=== PATIENT | female | born 1995 | race African-American/Black ===

== ENCOUNTER 2017-02-16 11:54 | Emergency (ER) | payer BC, OTHER ==
[2017-02-16 11:59] VITALS: BMI 28.9
--- NOTE | 2017-02-16 12:34 | PDOC ---
History of Present Illness - General Chief Complaint: Pain Stated Complaint: r/o pyelonephritis FEVER, RT SIDE PAIN Time Seen by Provider: 02/16/17 12:18 History Source: Patient Exam Limitations: No Limitations - History of Present Illness Initial Comments: 02/16/17 12:29 21 y.o F with pmh of recurrent UTI's presenting with left sided back pain. 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 She has been having this pain for the last week, intermittently, 7/10, sharp pain. Patient states the pain is pleuritic. She endorses fever, chills, mild dysuria. Denies N/V/D/C, hematuria, abdominal pain, chest pain, SOB, Vaginal bleeding, vaginal discharge. Patient is currently sexually active and does not use protection. No hx of STI' s. Last menstrual period: 02/06/17 PSH: denies ALL: PCN SH: +occasional marijuana PCP: Unsure, not through [facility]. Past History - Past Medical History Allergies/Adverse Reactions: Allergies Allergy/AdvReac Type Severity Reaction Status Date / Time Penicillins Allergy Rash Verified 02/16/17 11:56 shellfish derived Allergy Rash Verified 02/16/17 11:56 Home Medications: Ambulatory Orders No Home Medications 0 dose .ROUTE UTDICT 07/05/12 Metronidazole 500 mg PO BID #14 tablet 02/16/17 Sulfamethoxazole/Trimethoprim [Bactrim Ds Tablet] 1 each PO BID #28 tablet 02/16 Other medical history: none - Immunization History Immunization Up to Date: Yes - Suicide/Smoking/Psychosocial Hx Smoking Status: No Smoking History: Never smoked Number of Cigarettes Smoked Daily: 0 Information on smoking cessation initiated: No Hx Alcohol Use: No Drug/Substance Use Hx: No Substance Use Type: Marijuana Review of Systems - Review of Systems Able to Perform ROS?: Yes Comments:: 02/16/17 12:32 GENERAL/CONSTITUTIONAL: +Fever +chills. No weakness. HEAD, EYES, EARS, NOSE AND THROAT: No change in vision. No ear pain or discharge. No sore throat. CARDIOVASCULAR: No chest pain or shortness of breath RESPIRATORY: No cough, wheezing, or hemoptysis. GASTROINTESTINAL: No nausea, vomiting, diarrhea or constipation. +abdominal and flank pain GENITOURINARY: +dysuria, No frequency, or change in urination. MUSCULOSKELETAL: No joint or muscle swelling or pain. No neck pain. + back pain. SKIN: No rash NEUROLOGIC: No headache, vertigo, loss of consciousness, or change in strength/ sensation. ENDOCRINE: No increased thirst. No abnormal weight change HEMATOLOGIC/LYMPHATIC: No anemia, easy bleeding, or history of blood clots. ALLERGIC/IMMUNOLOGIC: No hives or skin allergy. *Physical Exam - Vital Signs Last Vital Signs Temp Pulse Resp BP Pulse Ox 100.0 F H 109 H 18 148/75 100 02/16/17 11:57 02/16/17 11:57 02/16/17 11:57 02/16/17 11:57 02/16/17 11:57 - Physical Exam Comments: 02/16/17 12:32 GENERAL: Awake, alert, and fully oriented, in no acute distress HEAD: No signs of trauma, normocephalic, atraumatic EYES: PERRLA, EOMI, sclera anicteric, conjunctiva clear ENT: Auricles normal inspection, hearing grossly normal, nares patent, oropharynx clear without exudates. Moist mucosa NECK: Normal ROM, supple, no lymphadenopathy, JVD, or masses LUNGS: No distress, speaks full sentences, clear to auscultation bilaterally HEART: Tachycardic, Regular rhythm, normal S1 and S2, no murmurs, rubs or gallops, peripheral pulses normal and equal bilaterally. ABDOMEN: Soft, Nontender, normoactive bowel sounds. No guarding, no rebound. No masses EXTREMITIES: Normal inspection, Normal range of motion, no edema. No clubbing or cyanosis. NEUROLOGICAL: Cranial nerves II through XII grossly intact. Normal speech, normal gait, no focal sensorimotor deficits SKIN: Warm, Dry, normal turgor, no rashes or lesions noted. ED Treatment Course - LABORATORY CBC & Chemistry Diagram: 02/16/17 13:11 02/16/17 13:11 Medical Decision Making - Medical Decision Making 02/16/17 12:32 21 year old F with pmh of recurrent UTI's presenting with flank pain and abdominal pain. Plan: CBC, CMP, UA, Ucx, Upreg, Gonarrhea/chlamydia, pain control 02/16/17 15:25 UA- 375 wbc. Upreg negative Bimanual exam negative. Patient has whitish discharge. Will tx for Bacterial vaginosis and uncomplicated pyelonephritis. Patient stable for d/c *DC/Admit/Observation/Transfer Diagnosis at time of Disposition: Flank pain - Discharge Dispostion Disposition: HOME Condition at time of disposition: Stable - Prescriptions Prescriptions: Sulfamethoxazole/Trimethoprim [Bactrim Ds Tablet] 1 each PO BID #28 tablet Metronidazole 500 mg PO BID #14 tablet - Patient Instructions Printed Discharge Instructions: DI for Urinary Tract Infection (UTI) Additional Instructions: Follow up with primary care provider and bottom filler doctor within a few days. Take Bactrim ds 1 tablet two times per day for 14 days. Take Metronidazole 500 mg two times per day for 7 days. If you have chest pain, shortness of breath, or any new/worsening symptoms please come back to the hospital immediately.
[2017-02-16] MEDS ORDERED: ACETAMINOPHEN 325 MG TABLET (FP) PO ONE (12:49)
--- NOTE | 2017-02-16 12:50 | PDOC ---
Attending Attestation - Resident Resident Name: QuocshaanJeanette velezl - ED Attending Attestation I have performed the following: I have examined & evaluated the patient, The case was reviewed & discussed with the resident, I agree w/resident's findings & plan, Exceptions are as noted - HPI HPI: 02/16/17 12:44 21yo F hx recurrent UTI p/w L flank pain for 1 week. She was seen by her OB last week and diagnosed with BV and given metrogel which hasn't helped. Pain is 7/10, radiates down her L leg. Reports subjective fevers and chills today as well as mild dysuria which prompted her to come in. States this feels like her previous UTIs. Pt is sexually active, had unprotected sex yesterday, denies vaginal DC. LMP 02/06. Denies other symptoms of CP, SOB, weakness/numbness, rashes, headache. - Physicial Exam PE: 02/16/17 12:50 GENERAL: Awake, alert, and fully oriented, in no acute distress HEAD: No signs of trauma EYES: PERRLA, EOMI, sclera anicteric, conjunctiva clear ENT: Auricles normal inspection, hearing grossly normal, nares patent, oropharynx clear without exudates. Moist mucosa NECK: Normal ROM, supple, no lymphadenopathy, JVD, or masses LUNGS: Breath sounds equal, clear to auscultation bilaterally. No wheezes, and no crackles HEART: tachy to 100 but regular, normal S1 and S2, no murmurs, rubs or gallops ABDOMEN: Soft, no abdominal ttp, normoactive bowel sounds. No guarding, no rebound. No masses. mild L CVAT TEENAGE PROGRAM DIRECTOR: normal external exam, no adnexal or midline ttp, no CMT. Small amount of white discharge in the vaginal vault EXTREMITIES: Normal range of motion, no edema. No clubbing or cyanosis. No cords, erythema, or tenderness NEUROLOGICAL: Normal speech, cranial nerves intact, negative pronator drift, 5/ 5 strength in all 4 extremities, normal sensation to light touch in all 4 extremities, normal cerebellar exam, normal gait, normal reflexes and tone SKIN: Warm, Dry, normal turgor, no rashes or lesions noted. - Medical Decision Making 02/16/17 12:51 21-year-old female with a history of recurrent UTIs presents with left flank pain. Vitals here remarkable for low-grade temp to 100 and tachycardia to 109. Exam with mild L CVAT. Differential includes but is not limited to UTI versus pyelonephritis versus ovarian cyst versus ectopic -labs -upt -UA -consider TVUS -pain control -reassess 02/16/17 15:31 UA+ for infection, in concert with CVAT, low grade fever on arrival and mild tachycardia likely pyelonephritis. UPT negative. Pelvic exam negative Will treat with bactrim. Also given failure of metrogel for BV, will order PO metronidozole. Although pt is underage, I warned her about consuming etoh while taking metronidazole. I discussed the physical exam findings, ancillary test results and final diagnoses with the patient. I answered all of the patient's questions. The patient was satisfied with the care received and felt comfortable with the discharge plan and treatment plan. The patient will call their primary care physician within 24 hours to arrange follow-up and will return to the Emergency Department with any new, persistent or worsening symptoms.
[2017-02-16 13:38] LABS: BASOPHIL 0.7 % (0-2.0); EOSINOPHIL 0.7 % (0-4.5); MCH 29.1 pg (25.7-33.7); MCHC 33.6 g/dl (32.0-36.0); MEAN CELL VOLUME 86.4 fl (80-96); MEAN PLT VOLUME 7.4 fl (7.5-11.1); NEUTROPHILS 55.2 % (42.8-82.8); PLATELET COUNT 277 K/MM3 (134-434); RDW 13.6 % (11.6-15.6); WHITE BLOOD COUNT 8.1 K/mm3 (4.0-10.0)
[2017-02-16] MEDS ORDERED: ACETAMINOPHEN 325 MG TABLET (FP) ONE (13:40)
[2017-02-16 13:41] LABS: URINE APPEARANCE CLOUDY; URINE BILIRUBIN NEGATIVE (NEGATIVE); URINE BLOOD 1+ (NEGATIVE); URINE COLOR YELLOW; URINE GLUCOSE (UA) NEGATIVE (NEGATIVE); URINE KETONE NEGATIVE (NEGATIVE); URINE NITRITE NEGATIVE (NEGATIVE); URINE UROBILINOGEN NEGATIVE mg/dL (0.2-1.0)
[2017-02-16 13:48] LABS: URINE PROTEIN 1+ (NEGATIVE)
[2017-02-16 14:13] LABS: ALBUMIN 3.3 g/dl (3.4-5.0); ALK PHOS 78 U/L (45-117); ANION GAP 11 (8-16); BILIRUBIN,TOTAL 0.5 mg/dL (0.2-1.0); CALCIUM 8.3 mg/dL (8.5-10.1); CO2 25 mmol/L (21-32); CREATININE 0.8 mg/dL (0.55-1.02); GLUCOSE,RANDOM 75 mg/dL (74-106); SGOT/AST 22 U/L (15-37); SGPT/ALT 28 U/L (12-78); TOT PROT 7.3 g/dl (6.4-8.2)
[2017-02-16 14:45] LABS: URINE BACTERIA FEW /hpf (NONE SEEN); URINE MUCUS RARE; URINE RBC 3 /hpf (0-3); URINE WBC 375 /hpf (3-5)
[2017-02-16 15:44] VITALS: BP 122/73; PULSE 93; TEMP 98.5
[2017-02-16 17:10] LABS: URINE LEUK ESTERASE 3+ (NEGATIVE)
== END 2017-02-16 15:48 | disposition home or self-care (01) ==
LOC: JER 11:54
DX: N39.0 Urinary tract infection, site not specified (principal); B96.20 Unspecified Escherichia coli [E. coli] as the cause of diseases classified elsewhere
CPT/HCPCS: 36415; 80053; 81003; 81015; 83690; 84703; 85025; 87086; 87186; 87491; 87591; 99283-25

== ENCOUNTER 2017-10-17 21:34 | Emergency (ER) | payer OTHER ==
[2017-10-17] MEDS ORDERED: DIPHTH,PERTUSS(ACELL),TET 0.5 ML DISP.SYRIN IM ONE (21:37)
--- NOTE | 2017-10-17 21:38 | PDOC ---
Rapid Medical Evaluation Medical Evaluation: Allergies Allergy/AdvReac Type Severity Reaction Status Date / Time Penicillins Allergy Rash Verified 02/16/17 11:56 shellfish derived Allergy Rash Verified 02/16/17 11:56 10/17/17 21:35 I have performed a brief in-person evaluation of this patient. The patient presents with a chief complaint of: left hand pain Pertinent physical exam findings: lac to arreola left thumb IP joint I have ordered the following: upreg, xray, Td The patient will proceed to the ED for further evaluation. Discharge Disposition - Diagnosis Left hand pain - Referrals - Patient Instructions - Post Discharge Activity
[2017-10-17 21:39] VITALS: BP 150/77; PULSE 94; TEMP 98.9; BMI 29.8
[2017-10-17] MEDS ORDERED: LIDOCAINE HCL 1%, 10 MG/ML (20ML VIAL) ONE (22:29)
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
== END 2017-10-17 23:08 | disposition home or self-care (01) ==
LOC: JERFT 21:34
PROC: 2W3KX1Z Immobilization of Left Finger using Splint (ICD-10-PCS; principal; 2017-10-17)
DX: M79.642 Pain in left hand (principal); S67.191A Crushing injury of left index finger, initial encounter; S67.02XA Crushing injury of left thumb, initial encounter; V04.90XA Pedestrian on foot injured in collision with heavy transport vehicle or bus, unspecified whether traffic or nontraffic accident, initial encounter; Y93.89 Activity, other specified; Y92.410 Unspecified street and highway as the place of occurrence of the external cause; S62.611A Displaced fracture of proximal phalanx of left index finger, initial encounter for closed fracture
CPT/HCPCS: 73130-TC-LR-FY; 84703; 90715; 99281-25

== ENCOUNTER 2017-10-23 07:39 | Day surgery (SDC) | payer OTHER ==
[2017-10-22 14:16] VITALS: BMI 29.6
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
[2017-10-23] MEDS ORDERED: ceFAZolin 2 GRAM PREMIX BAG IVPB ONE (07:55)
--- NOTE | 2017-10-23 08:17 | DS ---
Physical Examination Constitutional: Yes: Well Nourished, No Distress, Calm Eyes: Yes: Conjunctiva Clear, EOM Intact HENT: Yes: Atraumatic, Normocephalic Neck: Yes: Supple, Trachea Midline Cardiovascular: Yes: Regular Rate and Rhythm, S1, S2 Respiratory: Yes: Regular, CTA Bilaterally Gastrointestinal: Yes: Normal Bowel Sounds, Soft. No: Tenderness Renal/: No: CVA Tenderness - Left, CVA Tenderness - Right Musculoskeletal: No: Muscle Pain, Muscle Weakness Extremities: No: Cool, Cyanosis Edema: No Peripheral Pulses WNL: Yes Peripheral Pulses: Left Doralis Pedis: 2+, Right Dorsalis Pedis: 2+ Wound/Incision: Yes: Clean/Dry, Well Approximated, Dressing Dry and Intact ( Left hand splint) Discharge Summary Reason For Visit: DISP FX OF PROX PHALANX LT THUMB, INIT FOR CLOS FX Current Active Problems Fracture of proximal phalanx of left hand (Acute) Open fracture of proximal phalanx of left hand (Acute) Procedures: Principal: ORIF of left index finger proximal phalanx Hospital Course: Admitted for ambulatory procedure. Uneventful ORIF of left index finger proximal phalanx. Stable for discharge home Condition: Good - Instructions Diet, Activity, Other Instructions: Postoperative instructions: You had a ORIF of left index finger on 10/[address] Jamin Maldonado of [facility]. Activity: Resume your usual activities gradually, but no heavy exertion or lifting more than 10-15 pounds for 4-6 weeks. Please keep left hand spint clean and dry for 2 weeks until follow up. Eat lightly at first, but advance to your usual diet as tolerated. Pain: For pain, you may use and alternate Tylenol (acetaminophen) and/or ibuprofen every 6 hours each as needed; this means that you can take one OR the other at 3-hour intervals. If you are prescribed a Tylenol/narcotic combination for severe pain, use it instead of plain Tylenol as needed and switch back when your pain starts decreasing. Do not take more than 4000mg of acetaminophen in a day. Take medications as prescribed or indicated on the labeling. Follow-up: Call Dr. Maldonado' office at [phone] to make your postop appointment (Sunday 2 weeks after surgery as advised). Clinic is held in the [facility] on the first floor of [facility]. Call the office if you have: * increasing pain not responsive to pain medication * fever of 101F or higher * vomiting * unusual or increasing bleeding or drainage from wounds * increasing redness or swelling at wound sites * inability to urinate Also, see your primary medical doctor within 1-2 weeks. Disposition: HOME - Home Medications Comprehensive Discharge Medication List: Ambulatory Orders Ciprofloxacin [Cipro (Restricted To Id)] 500 mg PO Q12H 10/22/17 Oxycodone HCl/Acetaminophen [Percocet 5/325 -] 1 tab PO Q4H #40 tab MDD 5
[2017-10-23] MEDS ORDERED: PROPOFOL 20 ML ONE ×3 (08:48→09:27)
[2017-10-23] MEDS ORDERED: MIDAZOLAM HCL 2 MG/2 ML SINGLE DOSE VIAL ONE (08:48)
[2017-10-23] MEDS ORDERED: CLINDAMYCIN PHOSPHATE 600 MG/4 ML VIAL ONE (09:07)
[2017-10-23] MEDS ORDERED: CLINDAMYCIN PHOSPHATE 600 MG/4 ML VIAL IVPB ONE (09:10)
[2017-10-23] MEDS ORDERED: LIDOCAINE HCL 1%, 10 MG/ML (20ML VIAL) NR ONE (09:12)
[2017-10-23] MEDS ORDERED: oxyCODONE HCL 5 MG TABLET PO PRN (10:04)
[2017-10-23] MEDS ORDERED: ONDANSETRON 4 MG/2 ML VIAL IVPUSH PRN (10:04)
[2017-10-23] MEDS ORDERED: ACETAMINOPHEN 325 MG TABLET (FP) PO PRN (10:04)
--- NOTE | 2017-10-23 10:08 | OP ---
Operative Note - Note: Operative Date: 10/23/17 Pre-Operative Diagnosis: left index finger proximal phalanx fracture Operation: open reduction and internal fixation proximal phalanx of left indsx finger with plate and screws Findings: non-disoplaced transversed fracture proximal third proximal phalanx Implants: Activaeroiax hand plating system 3 hole t plate. 1.7x8, 1.7x10, 1.7X12, 1.7x14 Post-Operative Diagnosis: Same as Pre-op Surgeon: Jamin Maldonado Anesthesiologist/SURVEYOR HELPER ROD: Rafael Yoon Anesthesia: Local (1% lidocaine 20ml), MAC Estimated Blood Loss (mls): 1 Fluid Volume Replaced (mls): 800 Operative Report Dictated: Yes
[2017-10-23] MEDS ORDERED: LACTATED RINGERS SOLUTION 1,000 ML IV SCH (10:15)
[2017-10-23 12:42] VITALS: TEMP 98
[2017-10-23 15:26] VITALS: BP 143/72; PULSE 83
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
== END 2017-10-23 12:40 | disposition home or self-care (01) ==
LOC: JASU-SURG 07:39
PROC: 0PSV04Z Reposition Left Finger Phalanx with Internal Fixation Device, Open Approach (ICD-10-PCS; principal; 2017-10-23 09:00)
DX: S62.611A Displaced fracture of proximal phalanx of left index finger, initial encounter for closed fracture (principal); X58.XXXA Exposure to other specified factors, initial encounter; Y93.9 Activity, unspecified; Y92.9 Unspecified place or not applicable; Y99.9 Unspecified external cause status
CPT/HCPCS: 26735; C1713; 36415; 84703; 86850; 86900; 86901; 94760

== ENCOUNTER 2018-07-04 16:36 | Emergency (ER) | payer OTHER ==
[2018-07-04 16:46] VITALS: TEMP 98.2; BMI 36.6
[2018-07-04] MEDS ORDERED: diphenhydrAMINE HCL 25 MG CAPSULE (FP) PO ONE ×2 (17:10→17:33)
[2018-07-04] MEDS ORDERED: predniSONE 20 MG TABLET (UD) PO ONE (17:10)
--- NOTE | 2018-07-04 17:11 | PDOC ---
History of Present Illness - History of Present Illness Initial Comments: 22 Y F presenting s/p allergic reaction 2 hours prior to arrival. Patient notes she was eating leftover food, when she unknowingly consumed shrimp (pt has shellfish allergy) at 245PM today in the rice dish her mother cooked. She reports diarrhea, hives along her neck, throat discomfort, and left eye puffiness 10-15 minutes following the shrimp consumption. 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 While the staff at [facility] was trying to place the IV in her arm, patient began to hyperventilate and felt her throat close up. She reports nausea (without vomit) secondary to the IV steroid and IV placement. Patient was given an EPIpen in the past for prior allergic reaction to shellfish, but never used it and notes it is . Denies fever, chills, chest pain, SOB, palpitation, dizziness, weakness, N, V, D , abdominal pain, bladder and bowel problems, leg swelling, No sick contacts or travel. No new changes in medications. Allergies: Shellfish, bee venom, mussels, lemon eucalyptus, and penicillins Past Medical History: no PMH Social history: Lives with family. No smoking. No alcohol. Marijuana user. Surgical history: Right pointer finger lianne placement (crush injury) 07/04/18 18:07 <Tennille Mello - Last Filed: 07/04/18 18:07> - General History Source: Patient Exam Limitations: No Limitations <Sara Ramirez - Last Filed: 07/04/18 18:50> - General Chief Complaint: Allergic Reaction Stated Complaint: ALLERGIC REACTION Time Seen by Provider: 07/04/18 16:54 Past History <Tennille Mello - Last Filed: 07/04/18 18:07> - Past Medical History Anemia: No Asthma: No Cancer: No Cardiac Disorders: No CVA: No COPD: No CHF: No Dementia: No Diabetes: No GI Disorders: No Disorders: Yes (uti) HTN: No Hypercholesterolemia: No Liver Disease: No Seizures: No Thyroid Disease: No - Immunization History Immunization Up to Date: Yes - Suicide/Smoking/Psychosocial Hx Smoking Status: No Smoking History: Unknown if ever smoked Have you smoked in the past 12 months: No Number of Cigarettes Smoked Daily: 0 Hx Alcohol Use: No Drug/Substance Use Hx: Yes Substance Use Type: Marijuana Hx Substance Use Treatment: No <Sabino Ramirezdorian Salinas - Last Filed: 07/04/18 18:50> - Past Medical History Allergies/Adverse Reactions: Allergies Allergy/AdvReac Type Severity Reaction Status Date / Time bee venom protein (honey bee) Allergy Severe Difficulty Verified 10/22/17 14:20 Breathing mussels Allergy Severe Rash Verified 10/22/17 14:20 lemon eucalyptus Allergy Mild Hives Verified 10/22/17 14:20 [From Mosquito Eliminator] Penicillins Allergy Mild Rash Verified 10/22/17 14:21 shellfish derived Allergy Mild Rash Verified 10/22/17 14:21 Home Medications: Ambulatory Orders Diphenhydramine [Benadryl -] 50 mg PO TID #15 capsule 07/04/18 EPINEPHrine (EPI-PEN 0.3MG) [Epipen 0.3MG -] 0.3 mg IM ASDIR PRN #2 pens Famotidine [Pepcid -] 20 mg PO BID #10 tablet 07/04/18 Prednisone [Prednisone 50 MG TABLETS] 50 mg PO DAILY 3 Days #3 tablet 07/04/18 Review of Systems - Review of Systems Comments:: Constitutional: no fevers or chills. HEENT: no headache or dizziness. No congestion. No visual/hearing disturbances. +eye puffiness. CVS: no cp or syncope. Resp: no sob. No cough. Gastrointestinal: +Diarrhea +Nausea no abdominal pain or vomiting. Genitourinary: no urinary sx, hematuria. MUSCULOSKELETAL: No joint pain and swelling. No neck or back pain. SKIN: no redness or skin changes, no discharge, no rash. No wounds. Hematologic: no easy bruising/bleeding. NEUROLOGIC: No headache, dizziness, LOC or altered mental status. No weakness, numbness or tingling. Allergic/Immunologic: +Urticaria/rash, pruritis. All other systems reviewed and negative, or as documented in HPI. 07/04/18 18:07 <Tennille Mello - Last Filed: 07/04/18 18:07> *Physical Exam - Vital Signs Last Vital Signs Temp Pulse Resp BP Pulse Ox 98.2 F 79 18 122/63 98 07/04/18 16:44 07/04/18 16:44 07/04/18 16:44 07/04/18 16:44 07/04/18 16:44 - Physical Exam Comments: General: Well appearing, awake and alert, NAD. HEENT exam: NCAT, PERRL, EOMI, clear conjunctiva, anicteric, moist mucus membranes, clear oropharynx. Airway patent, normal phonation. Uvula midline. No sinus tenderness, TM clear, no pinna tenderness to manipulation. Neck: neck supple, FROM Resp: CTAB, normal and even respirations, no respiratory distress CVS: RRR, no murmurs, 2+ peripheral pulses throughout, no peripheral edema Abdomen: soft, NTND, no peritoneal signs. Back: nontender, normal inspection and ROM MSK: no edema, VASQUEZ x4, ROM intact. No clubbing or cyanosis. normal bulk and tone. Neuro: alert, oriented appropriately; no focal neurologic deficits Skin: warm and well perfused, cap refill <2 sec, normal color. No rash or urticaria. 07/04/18 18:08 <Tennille Mello - Last Filed: 07/04/18 18:07> - Vital Signs Last Vital Signs Temp Pulse Resp BP Pulse Ox 98.2 F 79 18 122/63 98 07/04/18 16:44 07/04/18 16:44 07/04/18 16:44 07/04/18 16:44 07/04/18 16:44 <Sara Ramirez - Last Filed: 07/04/18 18:50> Moderate Sedation - Procedure Monitoring Vital Signs: Procedure Monitoring Vital Signs Temperature 98.2 F 07/04/18 16:44 Pulse Rate 79 07/04/18 16:44 Respiratory Rate 18 07/04/18 16:44 Blood Pressure 122/63 07/04/18 16:44 O2 Sat by Pulse Oximetry (%) 98 07/04/18 16:44 <Tennille Mello - Last Filed: 07/04/18 18:07> - Procedure Monitoring Vital Signs: Procedure Monitoring Vital Signs Temperature 98.2 F 07/04/18 16:44 Pulse Rate 79 07/04/18 16:44 Respiratory Rate 18 07/04/18 16:44 Blood Pressure 122/63 07/04/18 16:44 O2 Sat by Pulse Oximetry (%) 98 07/04/18 16:44 <Sara Ramirez - Last Filed: 07/04/18 18:50> ED Treatment Course - Medications Given in the ED: ED Medications Discontinued Medications Generic Name Dose Route Start Last Admin Trade Name Radha PRN Reason Stop Dose Admin Diphenhydramine HCl 25 mg 07/04/18 17:10 07/04/18 17:41 Benadryl - PO 07/04/18 17:11 25 mg ONCE ONE Administration Famotidine/Sodium Chloride 20 mg in 50 mls @ 100 mls/hr 07/04/18 17:12 17:45 Pepcid 20 Mg Premixed Ivpb - IVPB 07/04/18 17:41 100 mls/hr ONCE ONE Administration Prednisone 60 mg 07/04/18 17:10 07/04/18 17:40 Deltasone - PO 07/04/18 17:11 60 mg ONCE ONE Administration <Tennille Mello - Last Filed: 07/04/18 18:07> Medical Decision Making - Medical Decision Making 07/04/18 17:11 DDx. allergic reaction: hypersensitivity reaction, allergic reaction, anaphylaxis, hives/urticaria. drug rash. dermatitis. serum sickness. vasculitis. medication side effect. -No fevers or systemic findings, clinically well appearing. no mucosal involvement so doubt SJS/TEN. airway patent, doubt anaphylaxis or Dress syndrome. - No evidence of erythema multiforme, SJS/TEN, Lyme, cellulitis, necrotizing fasciitis, no angioedema, meningococcemia, iraj mountain spotted fever. - given steroids, benadryl, pepcid with clinical improvement. VS wnl, stable, no hypotension. - instructions on avoiding triggers, rx prednisone x 3 more days, benadryl Q6-8 hr ATC x 3 days, pepcid for dual antihistamine relief. Does not appear at this time to be erythema multiforme, bullous, SJS, TEN as no rash; patient looks well, nontoxic and is tolerating oral intake; no neurologic signs or symptoms; no headache or photophobia or neck pain; no ev of sepsis; question viral exanthema; afebrile; appropriate for initial o/p tx; d/w pt importance of f/u and pt agrees/understands; told pt to return to nearest ER immediately for any worsening ssx incl but not limited to: fever, spreading rash , pain, sore throat, headache, dizziness, chest pain, trouble breathing, or any ssx concerning to the patient. I did d/w pt the aforementioned ddx as possibilities and pt understands to f/u even if better and to return to ER if un -changed/worse. Pt understands these instructions on d/c and is comfortable with discharge plan. 07/04/18 18:39 <Sara Ramirez - Last Filed: 07/04/18 18:50> *DC/Admit/Observation/Transfer - Attestations Scribe Attestion: Documentation prepared by YUNIOR Gates, acting as medical coding manager for Sara Ramirez MD. 07/04/18 18:00 <Tennille Mello - Last Filed: 07/04/18 18:07> - Discharge Dispostion Decision to Admit order: No - Attestations Physician Attestion: 07/04/18 17:21 I, Sara Ramirez MD, attest that this document has been prepared under my direction and personally reviewed by me in its entirety. I further attest, that it accurately reflects all work, treatment, procedures and medical decision -making performed by me. <Sara Ramirez - Last Filed: 07/04/18 18:50> Diagnosis at time of Disposition: Allergic reaction Qualifiers: Encounter type: initial encounter Qualified Code(s): T78.40XA - Allergy, unspecified, initial encounter - Discharge Dispostion Disposition: HOME Condition at time of disposition: Improved - Prescriptions Prescriptions: Diphenhydramine [Benadryl -] 50 mg PO TID #15 capsule EPINEPHrine (EPI-PEN 0.3MG) [Epipen 0.3MG -] 0.3 mg IM ASDIR PRN #2 pens PRN Reason: anaphylaxis Famotidine [Pepcid -] 20 mg PO BID #10 tablet Prednisone [Prednisone 50 MG TABLETS] 50 mg PO DAILY 3 Days #3 tablet - Referrals Referrals: [facility] [place] [Provider Group] [facility] [Provider Group] Reshma Lamb [Non Staff, Medical] - Ayana Loving [Non Staff, Medical] - - Patient Instructions Printed Discharge Instructions: DI for General Allergic Reactions Additional Instructions: Discharge for patients: Please follow-up with your primary doctor(s) within 2- 3 days, bosom presser referral given. Please avoid any known triggers of your allergies. We recommend you see an [facility] - we have given you a list of allergists (check with your insurance before making any appointments). You were given a copy of the results from any tests performed today in the Emergency Department which have results available. Show these to your doctor(s). Some of the tests we sent may not have results yet so please call or have your doctor call the Emergency Department to follow up on all results. We have sent a prescription for an Epi-Pen to your pharmacy. Please pick it up as soon as possible. Always carry this with you. In the Emergency Department today, we spoke about how to use the Epi-Pen only in the event of a severe allergic reaction with trouble breathing or throat swelling. You must go to the hospital right away if you ever use the Epi-Pen. Remember that they every year so you should have your doctor write a new prescription yearly. We have sent a prescription for prednisone to your pharmacy. Please pick it up as soon as possible and use as directed (1 tablet once daily for 3 more days). Take Benadryl (also called diphenhydramine) 25mg to 50 mg (1-2 capsules) every 6-8 hours as needed for further allergy symptoms (can be purchased without a prescription) - please note that Benadryl often causes drowsiness so please do not drive, make important decisions or operate machinery until you know how it will affect you. Please return to the Emergency Department right away if you have any worsening or new shortness of breath, changes in your voice, tightness/ itching in your mouth/throat, swelling, severe hives, chest pain, high fever. There is a very small chance of a recurrence of the allergic reaction, typically in the next 24 hours. If you see the same symptoms (rash, trouble breathing, vomiting, etc) return, come back to the Emergency Department immediately. - Post Discharge Activity Forms/Work/School Notes: Back to Work
[2018-07-04] MEDS ORDERED: FAMOTIDINE 20 MG/50 ML IVPB 20 MG/50 ML MG IVPB ONE ×2 (17:12→17:33)
[2018-07-04] MEDS ORDERED: predniSONE 20 MG TABLET (UD) ONE (17:32)
[2018-07-04 18:16] VITALS: BP 135/84; PULSE 88
== END 2018-07-04 18:21 | disposition home or self-care (01) ==
LOC: JER 16:36
PROC: 3E033GC Introduction of Other Therapeutic Substance into Peripheral Vein, Percutaneous Approach (ICD-10-PCS; principal; 2018-07-04)
DX: T78.1XXA Other adverse food reactions, not elsewhere classified, initial encounter (principal); L50.0 Allergic urticaria; Z91.013 Allergy to seafood; Z88.0 Allergy status to penicillin
CPT/HCPCS: 99282-25

== ENCOUNTER 2018-10-30 12:19 | Emergency (ER) | payer OTHER ==
[2018-10-30 12:53] VITALS: BP 134/65; PULSE 81; TEMP 98.2; BMI 35.4
--- NOTE | 2018-10-30 13:45 | PDOC ---
History of Present Illness - General Chief Complaint: Sore Throat Stated Complaint: SORE THROAT / COUGH Time Seen by Provider: 10/30/18 13:16 History Source: Patient Exam Limitations: Clinical Condition - History of Present Illness Initial Comments: 10/30/18 13:42 Patient with no significant past medical history present with complaint of 2 weeks history of persistent dry cough, nasal congestion and now with sore throat for 3 days. Reported taking [id number] medication for cough and Tessalon Perles without improvement. Denies fever, chills, shortness of breath, nausea or vomiting. Denies any sick contacts. Denies any other symptoms Timing/Duration: other (2 weeks) Past History - Past Medical History Allergies/Adverse Reactions: Allergies Allergy/AdvReac Type Severity Reaction Status Date / Time bee venom protein (honey bee) Allergy Severe Difficulty Verified 10/30/18 12:50 Breathing mussels Allergy Severe Rash Verified 10/30/18 12:50 lemon eucalyptus Allergy Mild Hives Verified 10/30/18 12:50 [From Mosquito Eliminator] Penicillins Allergy Mild Rash Verified 10/30/18 12:50 shellfish derived Allergy Mild Rash Verified 10/30/18 12:50 Home Medications: Ambulatory Orders Albuterol Sulfate Inhaler - [Ventolin Hfa Inhaler -] 1 - 2 inh PO Q4H PRN #1 inhaler 10/30/18 Methylprednisolone [Medrol Dose Cristhian] 4 mg PO ASDIR #21 tablet 10/30/18 Anemia: No Asthma: No Cancer: No Cardiac Disorders: No CVA: No COPD: No CHF: No Dementia: No Diabetes: No GI Disorders: No Disorders: Yes (uti) HTN: No Hypercholesterolemia: No Liver Disease: No Seizures: No Thyroid Disease: No - Immunization History Immunization Up to Date: Yes - Suicide/Smoking/Psychosocial Hx Smoking Status: No Smoking History: Never smoked Have you smoked in the past 12 months: No Number of Cigarettes Smoked Daily: 0 Information on smoking cessation initiated: No Hx Alcohol Use: No Drug/Substance Use Hx: No Substance Use Type: Marijuana Hx Substance Use Treatment: No Review of Systems - Review of Systems Able to Perform ROS?: Yes Is the patient limited Martiniquais proficient: No Constitutional: No: Chills, Fever, Malaise HEENTM: Yes: Symptoms Reported, See HPI, Throat Pain. No: Eye Pain, Blurred Vision, Tearing, Recent change in vision, Double Vision, Cataracts, Ear Pain, Ocular Prothesis, Ear Discharge, Nose Pain, Nose Congestion, Tinnitus, Nose Bleeding, Hearing Loss, Throat Swelling, Mouth Pain, Dental Problems, Difficulty Swallowing, Mouth Swelling, Other Respiratory: Yes: Symptoms reported, See HPI, Cough. No: Orthopnea, Shortness of Breath, SOB with Exertion, SOB at Rest, Stridor, Wheezing, Productive cough, Hemoptysis, Other Cardiac (ROS): No: Symptoms Reported, See HPI, Chest Pain, Edema, Irregular Heart Rate, Lightheadedness, Palpitations, Syncope, Chest Tightness, Other ABD/GI: No: Nausea, Vomiting All Other Systems: Reviewed and Negative *Physical Exam - Vital Signs Last Vital Signs Temp Pulse Resp BP Pulse Ox 98.2 F 81 17 134/65 100 10/30/18 12:50 10/30/18 12:50 10/30/18 12:50 10/30/18 12:50 10/30/18 12:50 - Physical Exam Comments: 10/30/18 13:44 GENERAL: Well developed, well nourished. Awake and alert. No acute distress. HEENT: Normocephalic, atraumatic. PERRLA, EOMI. No conjunctival pallor. Sclera are non-icteric. Moist mucous membranes. Oropharynx is clear. NECK: Supple. Full ROM. CARDIOVASCULAR: Regular rate and rhythm. No murmurs, rubs, or gallops. Distal pulses are 2+ and symmetric. PULMONARY: No evidence of respiratory distress. Lungs clear to auscultation bilaterally. No wheezing, rales or rhonchi. ABDOMINAL: Soft. Non-tender. Non-distended. No rebound or guarding. No organomegaly. Normoactive bowel sounds. MUSCULOSKELETAL Normal range of motion at all joints. SKIN: Warm and dry. Normal capillary refill. No rashes. No jaundice. NEUROLOGICAL: Alert, awake, appropriate. Gait is normal without ataxia. PSYCHIATRIC: Cooperative. Good eye contact. Appropriate mood General Appearance: Yes: Nourished, Appropriately Dressed. No: Apparent Distress ED Treatment Course - RADIOLOGY Radiology Studies Ordered: Category Date Time Status CHEST PA & LAT [RAD] Stat Radiology 10/30/18 13:39 Ordered Medical Decision Making - Medical Decision Making 10/30/18 13:43 Patient with no significant past medical history present with complaint of 2 weeks history of persistent dry cough, nasal congestion and now with sore throat for 3 days. Reported taking [id number] medication for cough and Tessalon Perles without improvement. Denies fever, chills, shortness of breath, nausea or vomiting. Denies any sick contacts. Denies any other symptoms Exam significant for mild postnasal drip otherwise unremarkable exam. No pharyngeal erythema. Lungs clear to auscultation bilateral. Symptoms likely viral URI versus strep versus less likely pneumonia. Rapid strep ordered to rule out strep pharyngitis. Checks x-ray ordered to rule out pneumonia. Treat based on lab and imaging results 10/30/18 14:42 Rapid strep negative . CXR shows no acute infiltrate. Patient symptoms likely viral URI and stable for discharge on medrol-cristhian for cough, loratadine with PCP f/u prn *DC/Admit/Observation/Transfer Diagnosis at time of Disposition: Cough URI (upper respiratory infection) Qualifiers: URI type: unspecified viral URI Qualified Code(s): J06.9 - Acute upper respiratory infection, unspecified - Discharge Dispostion Disposition: HOME Condition at time of disposition: Stable Decision to Admit order: No - Prescriptions Prescriptions: Albuterol Sulfate Inhaler - [Ventolin Hfa Inhaler -] 1 - 2 inh PO Q4H PRN #1 inhaler PRN Reason: Cough Methylprednisolone [Medrol Dose Cristhian] 4 mg PO ASDIR #21 tablet - Referrals Referrals: Lucila Mahoney [Primary Care Provider] - - Patient Instructions Printed Discharge Instructions: DI for Viral Upper Respiratory Infection -- Adult Additional Instructions: Your strep test was negative. Your checks x-ray was normal. Your symptoms likely viral upper respiratory infection. Take medication as prescribed. Stop cigarette smoking. Increase fluid as needed. Follow-up with primary care as needed - Post Discharge Activity Forms/Work/School Notes: Back to Work
== END 2018-10-30 14:52 | disposition home or self-care (01) ==
LOC: JERFT 12:19
DX: J06.9 Acute upper respiratory infection, unspecified (principal); R05 Cough
CPT/HCPCS: 71046-TC-FY; 84703; 87070; 87880; 99281-25

== ENCOUNTER 2018-11-20 11:38 | Emergency (ER) | payer OTHER ==
[2018-11-20 11:48] VITALS: BP 108/67; PULSE 73; TEMP 98.7; BMI 35.4
--- NOTE | 2018-11-20 12:24 | PDOC ---
History of Present Illness - General Chief Complaint: Cold Symptoms Stated Complaint: RT.RIB PAIN Time Seen by Provider: 11/20/18 11:52 History Source: Patient, Old Records Exam Limitations: No Limitations - History of Present Illness Initial Comments: 11/20/18 12:20 HISTORY OF PRESENT ILLNESS: This is a 23-year-old woman who denies medical history who presents emergency department for reevaluation of cough which is been persistent for 6 weeks. Patient states she was seen in this ER beginning of October had a negative workup and was discharged home with albuterol inhaler and Medrol Dosepak. Patient stated she did not want to take steroids so she skipped the prednisone and reports inhaler did not work. Patient reports the cough has been persistent with occasional posttussive vomiting. Now patient has pleuritic chest pain on the right side starting mid axillary over the eighth rib following the eighth rib under her right breast to the sternum. She denies any chest pain. She denies fevers, chills, recent travel, oral contraception. No recent travel or sick contacts. PAST MEDICAL HISTORY: Denies past medical history SURGICAL HISTORY: Denies ALLERGIES: No known drug allergies REVIEW OF SYSTEMS General/Constitutional: Denies fever or chills. Denies weakness, weight change. HEENT: Denies change in vision. Denies ear pain or discharge. Denies sore throat. Cardiovascular: Denies chest pain or shortness of breath. Respiratory: see HPI Gastrointestinal: Denies nausea, vomiting, diarrhea or constipation. Denies rectal bleeding. Genitourinary: Denies dysuria, frequency, or change in urination. Musculoskeletal: Denies joint or muscle swelling or pain. Denies neck or back pain. Skin and breasts: Denies rash or easy bruising. Neurologic: Denies headache, vertigo, loss of consciousness, or loss of sensation. Psychiatric: Denies depression or anxiety. Endocrine: Denies increased thirst. Denies abnormal weight change. Hematologic/Lymphatic: Denies anemia, easy bleeding, or history of blood clots. Allergic/Immunologic: Denies hives or skin allergy. Denies latex allergy. PHYSICAL EXAM General Appearance: Well-appearing, appropriately dressed. No apparent distress , no intoxication. HEENT: EOMI, PERRLA, normal ENT inspection, normal voice, TMs normal, pharynx normal. No conjunctival pallor. No photophobia, scleral icterus. Neck: Supple. Trachea midline. No tenderness, rigidity, carotid bruit, stridor , lymphadenopathy, or thyromegaly. Respiratory/Chest: Lungs CTAB. No shortness of breath, respiratory distress, accessory muscle use. No crackles, rales, rhonchi, stridor, wheezing, dullness. Chest tenderness present over the eighth rib starting in the mid axillary line extending under the right breast to the sternum. No chest tenderness upon palpation of the left side. Cardiovascular: RRR. S1, S2. No JVD, murmur, bradycardia, tachycardia. Vascular Pulses: Dorsalis-Pedis (R): 2+, Dorsalis-Pedis (L): 2+ Gastrointestinal/Abdominal: Normal bowel sounds. Abdomen soft, non-distended. No tenderness or rebound tenderness. No organomegaly, pulsatile mass, guarding, hernia, hepatomegaly, splenomegaly. Lymphatic: No adenopathy, tenderness. Musculoskeletal/Extremities: Normal inspection. FROM of all extremities, normal capillary refill. Pelvis Stable. No CVA tenderness. No tenderness to extremities, pedal edema, swelling, erythema or deformity. Integumentary: Appropriate color, dry, warm. No cyanosis, erythema, jaundice or rash Past History - Past Medical History Allergies/Adverse Reactions: Allergies Allergy/AdvReac Type Severity Reaction Status Date / Time bee venom protein (honey bee) Allergy Severe Difficulty Verified 10/30/18 12:50 Breathing mussels Allergy Severe Rash Verified 10/30/18 12:50 lemon eucalyptus Allergy Mild Hives Verified 10/30/18 12:50 [From Mosquito Eliminator] Penicillins Allergy Mild Rash Verified 10/30/18 12:50 shellfish derived Allergy Mild Rash Verified 10/30/18 12:50 Home Medications: Ambulatory Orders Albuterol Sulfate Inhaler - [Ventolin Hfa Inhaler -] 1 - 2 inh PO Q4H PRN #1 inhaler 10/30/18 Methylprednisolone [Medrol Dose Cristhian] 4 mg PO ASDIR #21 tablet 10/30/18 Anemia: No Asthma: No Cancer: No Cardiac Disorders: No CVA: No COPD: No CHF: No Dementia: No Diabetes: No GI Disorders: No Disorders: Yes (uti) HTN: No Hypercholesterolemia: No Liver Disease: No Seizures: No Thyroid Disease: No - Immunization History Immunization Up to Date: Yes - Suicide/Smoking/Psychosocial Hx Smoking Status: No Smoking History: Current some day smoker Have you smoked in the past 12 months: Yes Number of Cigarettes Smoked Daily: 0 Information on smoking cessation initiated: No Hx Alcohol Use: No Drug/Substance Use Hx: No Substance Use Type: Marijuana Hx Substance Use Treatment: No *Physical Exam - Vital Signs Last Vital Signs Temp Pulse Resp BP Pulse Ox 98.7 F 73 18 108/67 99 11/20/18 11:44 11/20/18 11:44 11/20/18 11:44 11/20/18 11:44 11/20/18 11:44 Medical Decision Making - Medical Decision Making 11/20/18 12:23 A/P: 23-year-old woman with cough for 6 weeks Differential diagnosis includes but is not limited to GERD, URI, rib fracture, pneumonia EKG, chest x-ray Reassess 11/20/18 13:05 EKG sinus rhythm with rate of 69. Normal intervals present. Normal axis. No ischemic changes noted. Chest x-rays read by Dr. Colmenares no evidence of active pulmonary disease. Visualized osseous structures appear intact. I will discharge the patient home to follow-up to primary doctor for continued evaluation of her persistent cough. *DC/Admit/Observation/Transfer Diagnosis at time of Disposition: URI (upper respiratory infection) Qualifiers: URI type: unspecified viral URI Qualified Code(s): J06.9 - Acute upper respiratory infection, unspecified - Discharge Dispostion Disposition: HOME Condition at time of disposition: Stable Decision to Admit order: No - Referrals - Patient Instructions Printed Discharge Instructions: DI for Viral Upper Respiratory Infection -- Adult Additional Instructions: Rest, drink lots of fluids: Teas, water, soups, Pedialyte Saltwater gargles Steamy showers/seem to face break up mucus Avoid contact with others until fevers and cough resolved Lots of handwashing and good hygiene Continue [id number] medications for symptomatic relief Tylenol or Motrin for fever and pain Followup with private physician in one to 2 days for further evaluation. Return to emergency department for worsened symptoms, fevers, dehydration - Post Discharge Activity Forms/Work/School Notes: Back to Work
--- NOTE | 2018-11-21 15:22 | EKG ---
Test Reason : Blood Pressure : / mmHG Vent. Rate : 069 BPM Atrial Rate : 069 BPM P-R Int : 132 ms QRS Dur : 072 ms QT Int : 402 ms P-R-T Axes : 066 032 028 degrees QTc Int : 430 ms NORMAL SINUS RHYTHM WITH SINUS ARRHYTHMIA NORMAL ECG NO PREVIOUS ECGS AVAILABLE Confirmed by DARWIN NATH MD ([id number]) on 11/21/2018 3:21:54 PM Referred By: Confirmed By:DARWIN NATH MD
== END 2018-11-20 13:12 | disposition home or self-care (01) ==
LOC: JERFT 11:38
DX: J06.9 Acute upper respiratory infection, unspecified (principal)
CPT/HCPCS: 71046-TC-FY; 93005; 93010; 99281-25

== ENCOUNTER 2021-07-01 10:18 | Emergency (ER) | payer OTHER ==
[2021-07-01 10:32] VITALS: BP 114/82; PULSE 73; TEMP 98.1; BMI 37.2
[2021-07-01] MEDS ORDERED: IBUPROFEN 600 MG TABLET (FP) PO ONE ×2 (10:48→10:51)
== END 2021-07-01 11:15 | disposition home or self-care (01) ==
LOC: JER 10:18
DX: S09.90XA Unspecified injury of head, initial encounter (principal)
CPT/HCPCS: 99283-25

== ENCOUNTER 2022-03-20 10:05 | Emergency (ER) | payer OTHER ==
[2022-03-20 10:35] VITALS: BP 124/82; PULSE 79; RESP 18; TEMP 97.6; BMI 38.9
[2022-03-20] MEDS ORDERED: MECLIZINE HCL 25 MG TABLET (FP) PO ONE ×2 (11:21→12:09)
[2022-03-20] MEDS ORDERED: MECLIZINE HCL 25 MG TABLET (FP) ONE ×2 (11:23→12:10)
[2022-03-20] MEDS ORDERED: ONDANSETRON *ODT* 4 MG TABLET SL ONE (12:09)
[2022-03-20] MEDS ORDERED: ONDANSETRON *ODT* 4 MG TABLET ONE (12:10)
== END 2022-03-20 12:57 | disposition home or self-care (01) ==
LOC: JER 10:05 → JERFT 10:05
DX: R55 Syncope and collapse (principal)
CPT/HCPCS: 93005; 93010; 99283-25; Q0162

== ENCOUNTER 2023-05-07 22:41 | Emergency (ER) | payer OTHER ==
[2023-05-07 22:49] VITALS: BP 110/69; PULSE 107; RESP 18; TEMP 98.2; BMI 38.6
[2023-05-07] MEDS ORDERED: ACETAMINOPHEN 1000 MG/100 ML BAG IVPB ONE (23:42)
[2023-05-07] MEDS ORDERED: ONDANSETRON 4 MG/2 ML VIAL IVPUSH ONE (23:42)
[2023-05-07] MEDS ORDERED: SODIUM CHLORIDE 0.9% 500 ML INFUS.BAG IV ONE (23:42)
[2023-05-08] MEDS ORDERED: ONDANSETRON 4 MG/2 ML VIAL ONE (00:33)
[2023-05-08] MEDS ORDERED: ACETAMINOPHEN INJECTION 100 ML IVPB ONE (00:33)
[2023-05-08] MEDS ORDERED: ALBUTEROL SO4 2.5/IPRATROPIUM 0.5 INH SOL 3 ML VIAL.NEB. NEB ONE ×2 (00:33→02:11)
[2023-05-08 00:57] LABS: BASO % 0.5 % (0-2.0); EOS % 0.5 % (0-4.5); HEMATOCRIT 44.2 % (32.4-45.2); HEMOGLOBIN 15.1 GM/dL (10.7-15.3); LYMPH % 37.4 % (8-40); MCH 29.2 pg (25.7-33.7); MCHC 34.1 g/dl (32.0-36.0); MEAN CELL VOLUME 85.7 fl (80-96); MEAN PLT VOLUME 8.2 fl (7.5-11.1); MONO % 12.5 % (3.8-10.2); NEUT % 49.1 % (42.8-82.8); PLATELET COUNT 287 10^3/uL (134-434); RBC 5.16 M/mm3 (3.60-5.2); RDW 13.6 % (11.6-15.6); WHITE BLOOD COUNT 5.6 K/mm3 (4.0-10.0)
[2023-05-08 00:59] LABS: EPI CELLS >36 /uL (0-25.1); HYALINE CASTS 0 /uL (0-3.1); URINE APPEARANCE CLOUDY; URINE BACTERIA 82 /uL (0-1359); URINE BILIRUBIN NEGATIVE (NEGATIVE); URINE COLOR ORANGE; URINE GLUCOSE (UA) NEGATIVE (NEGATIVE); URINE KETONE TRACE (NEGATIVE); URINE LEUK ESTERASE 1+ (NEGATIVE); URINE NITRITE NEGATIVE (NEGATIVE); URINE PROTEIN 1+ (NEGATIVE); URINE RBC 9315 /uL (0-23.9); URINE UROBILINOGEN 0.2 mg/dL (0.2-1.0); URINE WBC 48 /uL (0-25.8)
[2023-05-08] MEDS: ALBUTEROL SO4 2.5/IPRATROPIUM 0.5 INH SOL 3 ML VIAL.NEB. NEB SCH ×4 (00:59→01:14)
[2023-05-08 01:14] LABS: POTASSIUM 3.9 mmol/L (3.5-5.1)
[2023-05-08 01:17] LABS: ALBUMIN 3.4 g/dl (3.4-5.0)
[2023-05-08 01:20] LABS: CREATININE 0.9 mg/dL (0.55-1.3)
[2023-05-08 01:21] LABS: BILIRUBIN,TOTAL 0.4 mg/dL (0.2-1); TOT PROT 7.2 g/dl (6.4-8.2)
[2023-05-08] MEDS ORDERED: ALBUTEROL SO4 HFA INHALER IH ONE ×2 (02:11)
[2023-05-08] MEDS ORDERED: DEXAMETHASONE SOD PHOSPHATE 10 MG/1 ML VIAL ONE (02:11)
[2023-05-08] MEDS ORDERED: ALBUTEROL SO4 0.083% IH SOL 2.5 MG/3 ML VIAL.NEB. NEB ONE (02:11)
[2023-05-08] MEDS ORDERED: DEXAMETHASONE SOD PHOSPHATE 10 MG/1 ML VIAL IVPUSH ONE (02:11)
== END 2023-05-08 03:08 | disposition home or self-care (01) ==
LOC: JER 22:41
PROC: 3E033NZ Introduction of Analgesics, Hypnotics, Sedatives into Peripheral Vein, Percutaneous Approach (ICD-10-PCS; principal; 2023-05-08)
PROC: 3E033GC Introduction of Other Therapeutic Substance into Peripheral Vein, Percutaneous Approach (ICD-10-PCS; 2023-05-08)
PROC: 3E033GC Introduction of Other Therapeutic Substance into Peripheral Vein, Percutaneous Approach (ICD-10-PCS; 2023-05-08)
PROC: 3E0F7GC Introduction of Other Therapeutic Substance into Respiratory Tract, Via Natural or Artificial Opening (ICD-10-PCS; 2023-05-08)
PROC: 3E0F7GC Introduction of Other Therapeutic Substance into Respiratory Tract, Via Natural or Artificial Opening (ICD-10-PCS; 2023-05-08)
DX: R05.9 Cough, unspecified (principal); R09.81 Nasal congestion; R11.2 Nausea with vomiting, unspecified; R07.9 Chest pain, unspecified; R06.2 Wheezing; J11.1 Influenza due to unidentified influenza virus with other respiratory manifestations; R35.0 Frequency of micturition
CPT/HCPCS: 36415; 71046-TC-FY; 80053; 81003; 83735; 84484; 84703; 85025; 87086; 93005; 93010; 99285-25; J1100

== ENCOUNTER 2024-02-13 08:48 | Emergency (ER) | payer OTHER ==
[2024-02-13 09:15] VITALS: BP 119/71; PULSE 86; RESP 18; TEMP 98.6; BMI 40.2
[2024-02-13] MEDS ORDERED: ALBUTEROL SO4 2.5/IPRATROPIUM 0.5 INH SOL 3 ML VIAL.NEB. NEB ONE (09:36)
[2024-02-13] MEDS: ALBUTEROL SO4 2.5/IPRATROPIUM 0.5 INH SOL 3 ML VIAL.NEB. NEB ONE ×3 (09:40)
[2024-02-13] MEDS ORDERED: predniSONE 20 MG TABLET (UD) ONE (09:42)
[2024-02-13] MEDS ORDERED: predniSONE 10 MG TABLET (UD) ONE (09:43)
[2024-02-13] MEDS: predniSONE 20 MG TABLET (UD) PO ONE (09:45)
== END 2024-02-13 11:14 | disposition home or self-care (01) ==
LOC: JER 08:48
PROC: 3E0F7GC Introduction of Other Therapeutic Substance into Respiratory Tract, Via Natural or Artificial Opening (ICD-10-PCS; principal; 2024-02-13)
PROC: 3E0F7GC Introduction of Other Therapeutic Substance into Respiratory Tract, Via Natural or Artificial Opening (ICD-10-PCS; 2024-02-13)
DX: R06.02 Shortness of breath (principal); R05.9 Cough, unspecified; R07.89 Other chest pain; R06.2 Wheezing; J40 Bronchitis, not specified as acute or chronic; J98.01 Acute bronchospasm
CPT/HCPCS: 0241U-QW; 71046-TC-FY; 99284-25

== ENCOUNTER 2024-02-23 13:43 | Emergency (ER) | payer OTHER ==
[2024-02-23 13:51] VITALS: BP 148/87; PULSE 74; RESP 20; TEMP 98.2; BMI 39.3
== END 2024-02-23 17:00 | disposition home or self-care (01) ==
LOC: JERFT 13:43
DX: S05.12XA Contusion of eyeball and orbital tissues, left eye, initial encounter (principal); S69.92XA Unspecified injury of left wrist, hand and finger(s), initial encounter; Y04.8XXA Assault by other bodily force, initial encounter
CPT/HCPCS: 70450-TC; 70486-TC; 73130-TC-RT-FY; 84703; 99284-25

== ENCOUNTER 2024-03-11 18:49 | Emergency (ER) | payer OTHER ==
[2024-03-11 18:59] VITALS: BP 121/81; PULSE 86; RESP 20; TEMP 98.7; BMI 38.4
[2024-03-11 20:21] LABS: HCG,QUALITATIVE URINE Positive
[2024-03-11 20:24] LABS: EPI CELLS >36 /uL (0-25.1); HYALINE CASTS 1 /uL (0-3.1); PH,URINE 6.5 (5.0-8.0); URINE APPEARANCE CLEAR; URINE BACTERIA 1906 /uL (0-1359); URINE BILIRUBIN NEGATIVE (NEGATIVE); URINE COLOR YELLOW; URINE GLUCOSE (UA) NEGATIVE (NEGATIVE); URINE KETONE NEGATIVE (NEGATIVE); URINE LEUK ESTERASE 1+ (NEGATIVE); URINE NITRITE NEGATIVE (NEGATIVE); URINE PROTEIN NEGATIVE (NEGATIVE); URINE RBC 6 /uL (0-23.9); URINE UROBILINOGEN 0.2 mg/dL (0.2-1.0); URINE WBC 26 /uL (0-25.8)
[2024-03-11 21:56] LABS: BASO % 0.8 % (0-2.0); EOS % 3.3 % (0-4.5); HEMATOCRIT 39.9 % (32.4-45.2); HEMOGLOBIN 13.5 GM/dL (10.7-15.3); LYMPH % 33.9 % (8-40); MCH 29.7 pg (25.7-33.7); MCHC 33.8 g/dl (32.0-36.0); MEAN CELL VOLUME 87.8 fl (80-96); MEAN PLT VOLUME 7.8 fl (7.5-11.1); MONO % 8.4 % (3.8-10.2); NEUT % 53.6 % (42.8-82.8); PLATELET COUNT 311 10^3/uL (134-434); RBC 4.54 M/mm3 (3.60-5.2); RDW 13.8 % (11.6-15.6); WHITE BLOOD COUNT 10.4 K/mm3 (4.0-10.0)
[2024-03-11 22:16] LABS: POTASSIUM 3.9 mmol/L (3.5-5.1)
[2024-03-11 22:18] LABS: CALCIUM 8.9 mg/dL (8.5-10.1)
[2024-03-11 22:19] LABS: ALBUMIN 3.5 g/dl (3.4-5.0); BLOOD UREA NITROGEN 12.1 mg/dL (7-18)
[2024-03-11 22:22] LABS: CREATININE 0.8 mg/dL (0.55-1.3)
[2024-03-11 22:23] LABS: BILIRUBIN,TOTAL 0.3 mg/dL (0.2-1)
[2024-03-11 22:24] LABS: TOT PROT 6.8 g/dl (6.4-8.2)
[2024-03-11 23:13] LABS: HIV INTERPRETATION NEGATIVE (NEGATIVE)
== END 2024-03-11 23:10 | disposition home or self-care (01) ==
LOC: JER 18:49
DX: O21.9 Vomiting of pregnancy, unspecified (principal); O26.891 Other specified pregnancy related conditions, first trimester; R42 Dizziness and giddiness; Z3A.01 Less than 8 weeks gestation of pregnancy
CPT/HCPCS: 36415; 76817-TC; 80053; 81003; 84702; 84703; 85025; 86803; 86850; 86900; 86901; 87086; 87389; 99284-25